=== PATIENT | male | born 1965 | race Caucasian/White ===

== ENCOUNTER → 2018-09-10 | Outpatient (CLI) | payer OTHER | LOC: M.ULTRA 08-21 10:05 | DX: N28.89 Other specified disorders of kidney and ureter (principal); R05 Cough; R10.11 Right upper quadrant pain ==

== ENCOUNTER → 2021-09-07 | Outpatient (CLI) | payer OTHER | LOC: M.ULTRA 10:30 | PROVIDERS: ATTEND Family Medicine | DX: N43.2 Other hydrocele (principal); N44.2 Benign cyst of testis ==